=== PATIENT | female | born 1935 | race Caucasian/White ===

== ENCOUNTER 2024-10-31 15:26 | Inpatient (IN) | payer MEDICARE, OTHER ==
[~2024-10-31] VITALS: Ht 144.8 cm; Wt 53.0 kg
[2024-10-31] MEDS: diltiazem-NS 100mg/100ml 100 ML IV SCH (15:49)
[2024-10-31] MEDS ORDERED: LEVO25TA2 PO (17:36)
[2024-10-31] MEDS ORDERED: AZIT-21 PO (17:36)
[2024-10-31] MEDS ORDERED: MEGE400O45 PO (17:36)
[2024-10-31] MEDS ORDERED: SACU1TAB PO (17:36)
[2024-10-31] MEDS ORDERED: CARV-50 PO (17:36)
[2024-10-31] MEDS ORDERED: DONE-53 PO (17:36)
[2024-10-31] MEDS ORDERED: PRIM50TA27 PO (17:36)
[2024-10-31] MEDS ORDERED: EMPA10TA PO (17:36)
[2024-10-31] MEDS ORDERED: LOP12.5T PO (17:36)
[2024-10-31] MEDS ORDERED: MIRT-142 PO (17:36)
[2024-10-31] MEDS ORDERED: FURO-150 PO (17:36)
[2024-10-31] MEDS ORDERED: LISI20TA28 PO (17:36)
[2024-10-31] MEDS ORDERED: APIX5TAB5 PO (17:36)
[2024-10-31] MEDS ORDERED: SUMA25TA35 PO (17:36)
[2024-10-31] MEDS ORDERED: CLON-850 PO (17:36)
[2024-10-31 18:28] LABS: BASOPHILS # (AUTO) 0.1 X10'3 (0-0.2); EOSINOPHILS % (AUTO) 0.2 % (0-6); HEMATOCRIT 48.5 % (35.0-45.0); HEMOGLOBIN 16.3 g/dl (12.0-16.0); LYMPHOCYTES # (AUTO) 2.3 X10'3 (1.1-4.8); LYMPHOCYTES % (AUTO) 33.8 % (21-51); MEAN CORPUSCULAR HEMOGLOBIN 32.9 PG (27.0-31.0); MEAN CORPUSCULAR HGB CONC 33.6 g/dL (33.0-36.5); MEAN PLATELET VOLUME 9.5 FL (7.4-10.4); MONOCYTES % (AUTO) 14.5 % (2-12); NEUTROPHILS # (AUTO) 3.5 X10'3 (1.8-7.7); NEUTROPHILS % (AUTO) 50.5 % (42-75); PLATELET COUNT 183 X10'3 (140-440); RED BLOOD COUNT 4.95 X10'6 (4.20-5.60); RED CELL DISTRIBUTION WIDTH 14.8 % (11.5-14.5); WHITE BLOOD COUNT 6.9 X10'3 (4.5-11.0)
[2024-10-31 19:14] LABS: ALANINE AMINOTRANSFERASE 37 U/L (12-78); ALBUMIN 3.3 G/DL (3.4-5.0); ALKALINE PHOSPHATASE 78 IU/L (46-116); ANION GAP 12 (8-16); ASPARTATE AMINO TRANSFERASE 25 U/L (10-37); BILIRUBIN,TOTAL 1.2 MG/DL (0.1-1.0); BLOOD UREA NITROGEN 20 MG/DL (7-18); BUN/CREATININE RATIO 12.8 (10.0-20.0); CALCIUM 9.1 MG/DL (8.5-10.1); CHLORIDE 106 MMOL/L (99-107); CREATININE 1.56 MG/DL (0.40-0.90); GLUCOSE 91 MG/DL (70-104); POTASSIUM 3.5 MMOL/L (3.5-5.1); PRO BRAIN NATRIURETIC PEPTIDE 18764 PG/ML (0-450); SODIUM 144 MMOL/L (135-145); TOTAL CARBON DIOXIDE 25.6 MMOL/L (24-32); TOTAL PROTEIN 6.7 G/DL (6.4-8.2); eCRCL 19 ML/MIN; eGFR 31 ML/MIN
[2024-10-31] MEDS ORDERED: acetaminophen 325mg tablet PO PRN (20:35)
[2024-10-31] MEDS ORDERED: magnesium hydroxide 30ml (MOM) UD suspension PO PRN (20:35)
[2024-10-31] MEDS ORDERED: potassium Cl 40MEQ/1/2NS 520ml 520 ML IV PRN (20:35)
[2024-10-31] MEDS ORDERED: magnesium sulf-water 4G/100mL 100 ML IV PRN (20:35)
[2024-10-31] MEDS ORDERED: magnesium sulf-water 2g/50mL 50 ML IV PRN (20:35)
[2024-10-31] MEDS: furosemide 10 MG/1 ML 10ml inj IV ONE (21:11)
[2024-10-31] MEDS: amiodarone 150mg/dext, iso-os 100 ML IV ONE (21:14)
[2024-10-31] MEDS: potassium Cl 20 mEq SR tablet PO STA ×2 (21:38→22:50)
[2024-10-31] MEDS: apixaban 2.5mg tablet PO SCH (21:38)
[2024-10-31] MEDS: amiodarone/D5 360MG/200ML BAG 200 ML IV SCH (21:42)
[2024-11-01] VITALS (16 sets, daily range): BP systolic 107–140; BP diastolic 69–86; PULSE 101–132; RESP 12–27; TEMP 96.9–98.1; O2SAT 93–96
[2024-11-01] MEDS: magnesium sulf-water 4G/100mL 100 ML IV ONE (00:44)
[2024-11-01] MEDS ORDERED: SUMAtriptan 25 MG tablet PO PRN (04:55)
[2024-11-01 06:51] LABS: APTT 26 SECONDS (22-32); INR 1.2 INR; PROTHROMBIN TIME 12.8 SECONDS (9.0-12.0)
[2024-11-01 07:08] LABS: ALANINE AMINOTRANSFERASE 43 U/L (12-78); ALBUMIN 3.1 G/DL (3.4-5.0); ALBUMIN/GLOBULIN RATIO 0.9 (1.1-1.5); ALKALINE PHOSPHATASE 72 IU/L (46-116); ANION GAP 16 (8-16); BILIRUBIN,TOTAL 0.8 MG/DL (0.1-1.0); BLOOD UREA NITROGEN 21 MG/DL (7-18); BUN/CREATININE RATIO 14.7 (10.0-20.0); CALCIUM 8.5 MG/DL (8.5-10.1); CHLORIDE 102 MMOL/L (99-107); CHOL/HDL RATIO 3.1 (0.00-4.99); CHOLESTEROL 136 MG/DL (0-200); CREATININE 1.43 MG/DL (0.40-0.90); FREE T4 (FREE THYROXINE) 1.43 NG/DL (0.73-1.40); GLUCOSE 103 MG/DL (70-104); HDL CHOLESTEROL 44 MG/DL (35-60); LDL CHOLESTEROL 76 MG/DL (50-100); MAGNESIUM 1.7 MG/DL (1.5-2.4); SODIUM 138 MMOL/L (135-145); THYROID STIMULATING HORMONE 2.83 ulU/ml (0.34-4.50); TOTAL CARBON DIOXIDE 19.8 MMOL/L (24-32); TOTAL PROTEIN 6.6 G/DL (6.4-8.2); TRIGLYCERIDES 103 MG/DL (20-135); eCRCL 16 ML/MIN; eGFR 35 ML/MIN
[2024-11-01 07:15] LABS: ASPARTATE AMINO TRANSFERASE 41 U/L (10-37); PHOSPHORUS 2.9 MG/DL (2.3-4.5); POTASSIUM 3.8 MMOL/L (3.5-5.1)
[2024-11-01 07:17] LABS: LYMPHOCYTES # (AUTO) 2.3 X10'3 (1.1-4.8); MONOCYTES # (AUTO) 1.1 X10'3 (0-0.9); NEUTROPHILS % (AUTO) 53.8 % (42-75)
[2024-11-01 07:18] LABS: BASOPHILS % (AUTO) 0.4 % (0-1); EOSINOPHILS % (AUTO) 0.4 % (0-6); HEMATOCRIT 47.9 % (35.0-45.0); HEMOGLOBIN 15.9 g/dl (12.0-16.0); LYMPHOCYTES % (AUTO) 30.6 % (21-51); MEAN CORPUSCULAR HEMOGLOBIN 32.7 PG (27.0-31.0); MEAN CORPUSCULAR HGB CONC 33.1 g/dL (33.0-36.5); MEAN CORPUSCULAR VOLUME 98.9 FL (78-98); MEAN PLATELET VOLUME 9.9 FL (7.4-10.4); MONOCYTES % (AUTO) 14.8 % (2-12); PLATELET COUNT 174 X10'3 (140-440); RED BLOOD COUNT 4.85 X10'6 (4.20-5.60); RED CELL DISTRIBUTION WIDTH 15.3 % (11.5-14.5); WHITE BLOOD COUNT 7.5 X10'3 (4.5-11.0)
[2024-11-01] MEDS: K and/or MAG REPLACEMENT MC SCH (08:00)
[2024-11-01 08:16] LABS: HEMOGLOBIN A1C 5.5 % (4.5-6.2)
[2024-11-01] MEDS: azithromycin/NS 500mg/250ml 250 ML IV ONE (09:49)
[2024-11-01] MEDS: levoTHYROXINE 25mcg tablet PO SCH (09:51)
[2024-11-01] MEDS: docusate sod 100mg capsule PO SCH (09:52)
[2024-11-01] MEDS: furosemide 40mg/4ml inj IV SCH (09:52)
[2024-11-01] MEDS: CefTRIAXone 2gm/D5W 50ml BAG 50 ML IV SCH (12:03)
[2024-11-01] MEDS: metoprolol tartrate 1mg/ml inj IV SCH (16:57)
[2024-11-01] MEDS: digoxin 250mcg/ml 2ml ampule IV ONE (17:23)
[2024-11-01] MEDS: primidone 50mg tablet PO SCH (20:14)
[2024-11-01] MEDS: digoxin 250mcg/ml 2ml ampule IV STA (20:15)
[2024-11-01] MEDS ORDERED: mirtazapine 15mg tablet PO SCH (21:00)
[2024-11-01] MEDS ORDERED: donepezil 5mg tablet PO SCH (21:00)
[2024-11-01] MEDS: acetaminophen 325mg tablet PO PRN (23:05)
[2024-11-02 02:00] VITALS: BP 104/66; PULSE 93; RESP 20; TEMP 96.3; O2SAT 93
[2024-11-02 06:30] VITALS: BP 143/70; PULSE 118; RESP 22; TEMP 97.8; O2SAT 99
[2024-11-02 07:57] LABS: LYMPHOCYTES # (AUTO) 0.5 X10'3 (1.1-4.8)
[2024-11-02 07:59] LABS: BASOPHILS % (AUTO) 0.3 % (0-1); EOSINOPHILS % (AUTO) 0 % (0-6); HEMATOCRIT 47.4 % (35.0-45.0); HEMOGLOBIN 16.2 g/dl (12.0-16.0); LYMPHOCYTES % (AUTO) 4.3 % (21-51); MEAN CORPUSCULAR HEMOGLOBIN 32.8 PG (27.0-31.0); MEAN CORPUSCULAR HGB CONC 34.1 g/dL (33.0-36.5); MEAN CORPUSCULAR VOLUME 96.4 FL (78-98); MEAN PLATELET VOLUME 9.9 FL (7.4-10.4); MONOCYTES # (AUTO) 0.8 X10'3 (0-0.9); MONOCYTES % (AUTO) 6.7 % (2-12); NEUTROPHILS # (AUTO) 10.3 X10'3 (1.8-7.7); NEUTROPHILS % (AUTO) 88.7 % (42-75); PLATELET COUNT 155 X10'3 (140-440); RED BLOOD COUNT 4.92 X10'6 (4.20-5.60); RED CELL DISTRIBUTION WIDTH 14.3 % (11.5-14.5); WHITE BLOOD COUNT 11.6 X10'3 (4.5-11.0)
[2024-11-02 09:27] LABS: APTT 31 SECONDS (22-32); INR 1.4 INR
[2024-11-02 10:03] LABS: ALANINE AMINOTRANSFERASE 52 U/L (12-78); ALBUMIN/GLOBULIN RATIO 0.8 (1.1-1.5); ALKALINE PHOSPHATASE 76 IU/L (46-116); ANION GAP 11 (8-16); ASPARTATE AMINO TRANSFERASE 49 U/L (10-37); BILIRUBIN,TOTAL 0.7 MG/DL (0.1-1.0); BLOOD UREA NITROGEN 25 MG/DL (7-18); BUN/CREATININE RATIO 13.7 (10.0-20.0); CALCIUM 8.2 MG/DL (8.5-10.1); CHLORIDE 98 MMOL/L (99-107); CREATININE 1.83 MG/DL (0.40-0.90); DIGOXIN 1.2 NG/ML (0.9-1.9); GLUCOSE 113 MG/DL (70-104); MAGNESIUM 1.4 MG/DL (1.5-2.4); PHOSPHORUS 3.2 MG/DL (2.3-4.5); POTASSIUM 3.1 MMOL/L (3.5-5.1); SODIUM 136 MMOL/L (135-145); TOTAL CARBON DIOXIDE 26.9 MMOL/L (24-32); TOTAL PROTEIN 6.7 G/DL (6.4-8.2); eCRCL 13 ML/MIN; eGFR 26 ML/MIN
[2024-11-02] MEDS: digoxin 250mcg/ml 2ml ampule IV ONE ×2 (10:23→17:42)
[2024-11-02] MEDS: metoprolol tartrate 1mg/ml inj IV SCH ×2 (10:25→20:16)
[2024-11-02 11:00] VITALS: BP 104/54; PULSE 124; RESP 28; TEMP 97.9; O2SAT 95
[2024-11-02] MEDS: magnesium Cl slow-release 64mg tablet PO PRN (12:32)
[2024-11-02] MEDS: potassium Cl 20 mEq SR tablet PO PRN ×2 (12:37→20:13)
[2024-11-02] MEDS: ondansetron/PF 4mg/2ml inj IV PRN (14:11)
[2024-11-02 15:00] VITALS: BP 123/58; PULSE 100; RESP 19; TEMP 99.3; O2SAT 92
[2024-11-02] MEDS: azithromycin/NS 500mg/250ml 250 ML IV SCH (17:51)
[2024-11-02 18:00] VITALS: BP 101/58; PULSE 96; RESP 19; TEMP 97.9; O2SAT 92
[2024-11-02] MEDS: amiodarone 200mg tablet PO SCH (20:13)
[2024-11-02 22:00] VITALS: BP 111/59; PULSE 98; RESP 22; TEMP 97.4; O2SAT 98
[2024-11-03] MEDS: Melatonin 3mg tablet PO ONE ×2 (00:48→23:05)
[2024-11-03 02:00] VITALS: BP 113/53; PULSE 79; RESP 22; TEMP 97.8; O2SAT 98
[2024-11-03 06:00] VITALS: BP 114/55; PULSE 82; RESP 15; TEMP 97.7; O2SAT 97
[2024-11-03 06:58] LABS: BASOPHILS % (AUTO) 0.2 % (0-1); EOSINOPHILS % (AUTO) 0 % (0-6); HEMATOCRIT 47.7 % (35.0-45.0); HEMOGLOBIN 15.8 g/dl (12.0-16.0); LYMPHOCYTES % (AUTO) 7.2 % (21-51); MEAN CORPUSCULAR HEMOGLOBIN 32.1 PG (27.0-31.0); MEAN CORPUSCULAR HGB CONC 33.2 g/dL (33.0-36.5); MEAN CORPUSCULAR VOLUME 96.7 FL (78-98); MEAN PLATELET VOLUME 10.1 FL (7.4-10.4); MONOCYTES # (AUTO) 0.9 X10'3 (0-0.9); MONOCYTES % (AUTO) 6.5 % (2-12); NEUTROPHILS # (AUTO) 11.9 X10'3 (1.8-7.7); NEUTROPHILS % (AUTO) 86.1 % (42-75); PLATELET COUNT 141 X10'3 (140-440); RED BLOOD COUNT 4.93 X10'6 (4.20-5.60); RED CELL DISTRIBUTION WIDTH 14.6 % (11.5-14.5); WHITE BLOOD COUNT 13.8 X10'3 (4.5-11.0)
[2024-11-03 07:31] LABS: APTT 31 SECONDS (22-32); INR 1.2 INR; PROTHROMBIN TIME 12.7 SECONDS (9.0-12.0)
[2024-11-03 07:47] LABS: ALANINE AMINOTRANSFERASE 47 U/L (12-78); ALBUMIN 2.7 G/DL (3.4-5.0); ALBUMIN/GLOBULIN RATIO 0.8 (1.1-1.5); ALKALINE PHOSPHATASE 64 IU/L (46-116); ANION GAP 15 (8-16); ASPARTATE AMINO TRANSFERASE 38 U/L (10-37); BILIRUBIN,TOTAL 0.5 MG/DL (0.1-1.0); BLOOD UREA NITROGEN 37 MG/DL (7-18); BUN/CREATININE RATIO 19.2 (10.0-20.0); CALCIUM 8.1 MG/DL (8.5-10.1); CHLORIDE 99 MMOL/L (99-107); CREATININE 1.93 MG/DL (0.40-0.90); GLUCOSE 92 MG/DL (70-104); MAGNESIUM 1.6 MG/DL (1.5-2.4); PHOSPHORUS 4.2 MG/DL (2.3-4.5); SODIUM 136 MMOL/L (135-145); TOTAL CARBON DIOXIDE 22.4 MMOL/L (24-32); eCRCL 12 ML/MIN; eGFR 24 ML/MIN
[2024-11-03 07:51] LABS: POTASSIUM 3.8 MMOL/L (3.5-5.1)
[2024-11-03] MEDS ORDERED: furosemide 40mg/4ml inj IV SCH (08:00)
[2024-11-03 08:30] LABS: DIGOXIN 5.8 NG/ML (0.9-1.9)
[2024-11-03 11:00] VITALS: BP 127/53; PULSE 76; RESP 20; TEMP 97.8; O2SAT 95
[2024-11-03] MEDS: loperamide 2mg capsule PO ONE (13:28)
[2024-11-03 15:00] VITALS: BP 138/56; PULSE 80; RESP 28; TEMP 97.9; O2SAT 97
[2024-11-03] MEDS: metoprolol tartrate 50mg tablet PO SCH (15:09)
[2024-11-03 18:00] VITALS: BP 126/54; PULSE 69; RESP 23; TEMP 98.1; O2SAT 97
[2024-11-03] MEDS: PERFLUTREN PROTEIN-A MICROSPHR (Optison) 0.22 MG/ML 3ML VIAL IV ONE (20:05)
[2024-11-03] MEDS: normal saline 1000ml 1,000 ML IV SCH (21:07)
[2024-11-03 22:00] VITALS: BP 137/71; PULSE 70; RESP 28; TEMP 96.8; O2SAT 93
[2024-11-04 02:00] VITALS: BP 136/59; PULSE 73; RESP 19; TEMP 97.1; O2SAT 92
[2024-11-04 06:00] VITALS: BP 118/76; PULSE 83; RESP 20; TEMP 97.6; O2SAT 94
[2024-11-04 07:20] LABS: BASOPHILS % (AUTO) 0.3 % (0-1); EOSINOPHILS % (AUTO) 0.1 % (0-6); HEMATOCRIT 44.2 % (35.0-45.0); INR 1.2 INR; LYMPHOCYTES # (AUTO) 0.9 X10'3 (1.1-4.8); LYMPHOCYTES % (AUTO) 8.1 % (21-51); MEAN CORPUSCULAR HEMOGLOBIN 32.6 PG (27.0-31.0); MEAN CORPUSCULAR VOLUME 95.9 FL (78-98); MEAN PLATELET VOLUME 10.4 FL (7.4-10.4); MONOCYTES # (AUTO) 1.2 X10'3 (0-0.9); MONOCYTES % (AUTO) 10.1 % (2-12); NEUTROPHILS # (AUTO) 9.5 X10'3 (1.8-7.7); NEUTROPHILS % (AUTO) 81.4 % (42-75); PLATELET COUNT 154 X10'3 (140-440); PROTHROMBIN TIME 12.1 SECONDS (9.0-12.0); RED BLOOD COUNT 4.61 X10'6 (4.20-5.60); RED CELL DISTRIBUTION WIDTH 14.2 % (11.5-14.5); WHITE BLOOD COUNT 11.7 X10'3 (4.5-11.0)
[2024-11-04 07:25] LABS: ALANINE AMINOTRANSFERASE 34 U/L (12-78); ALBUMIN 2.7 G/DL (3.4-5.0); ALBUMIN/GLOBULIN RATIO 0.8 (1.1-1.5); ALKALINE PHOSPHATASE 60 IU/L (46-116); ANION GAP 10 (8-16); ASPARTATE AMINO TRANSFERASE 22 U/L (10-37); BILIRUBIN,TOTAL 0.4 MG/DL (0.1-1.0); BLOOD UREA NITROGEN 42 MG/DL (7-18); BUN/CREATININE RATIO 19.4 (10.0-20.0); CHLORIDE 99 MMOL/L (99-107); CREATININE 2.16 MG/DL (0.40-0.90); GLUCOSE 94 MG/DL (70-104); MAGNESIUM 1.5 MG/DL (1.5-2.4); PHOSPHORUS 3.1 MG/DL (2.3-4.5); POTASSIUM 3.5 MMOL/L (3.5-5.1); SODIUM 134 MMOL/L (135-145); TOTAL CARBON DIOXIDE 25.3 MMOL/L (24-32); TOTAL PROTEIN 6.1 G/DL (6.4-8.2); eCRCL 11 ML/MIN; eGFR 21 ML/MIN
[2024-11-04] MEDS ORDERED: DOBUTamine-DoBUTrex 500mg/D5W 250 ML IV SCH (07:55)
[2024-11-04] MEDS: levoTHYROXINE 75mcg tablet PO SCH (08:52)
[2024-11-04 09:29] LABS: PRO BRAIN NATRIURETIC PEPTIDE 16871 PG/ML (0-450)
[2024-11-04 11:00] VITALS: BP 140/66; PULSE 61; RESP 25; TEMP 98.3; O2SAT 92
[2024-11-04 15:00] VITALS: BP 145/72; PULSE 80; RESP 32; TEMP 98.6; O2SAT 92
[2024-11-04 18:00] VITALS: BP 117/58; PULSE 75; RESP 18; TEMP 98.2; O2SAT 90
[2024-11-04] MEDS: carVEDilol 12.5mg tablet PO SCH (20:18)
[2024-11-04 22:00] VITALS: BP 96/54; PULSE 54; RESP 12; TEMP 97.9; O2SAT 92
[2024-11-05] VITALS (7 sets, daily range): BP systolic 124–147; BP diastolic 54–70; PULSE 67–78; RESP 16–22; TEMP 97.3–100; O2SAT 94–98
[2024-11-05 07:28] LABS: BASOPHILS % (AUTO) 0.4 % (0-1); EOSINOPHILS % (AUTO) 0.4 % (0-6); HEMATOCRIT 45.2 % (35.0-45.0); HEMOGLOBIN 15.4 g/dl (12.0-16.0); LYMPHOCYTES # (AUTO) 0.8 X10'3 (1.1-4.8); LYMPHOCYTES % (AUTO) 9.4 % (21-51); MEAN CORPUSCULAR HEMOGLOBIN 32.3 PG (27.0-31.0); MEAN CORPUSCULAR HGB CONC 34.1 g/dL (33.0-36.5); MEAN CORPUSCULAR VOLUME 94.9 FL (78-98); MEAN PLATELET VOLUME 9.8 FL (7.4-10.4); MONOCYTES # (AUTO) 0.7 X10'3 (0-0.9); MONOCYTES % (AUTO) 8.1 % (2-12); NEUTROPHILS # (AUTO) 7.1 X10'3 (1.8-7.7); NEUTROPHILS % (AUTO) 81.7 % (42-75); PLATELET COUNT 137 X10'3 (140-440); RED BLOOD COUNT 4.76 X10'6 (4.20-5.60); RED CELL DISTRIBUTION WIDTH 14.6 % (11.5-14.5); WHITE BLOOD COUNT 8.7 X10'3 (4.5-11.0)
[2024-11-05 07:41] LABS: INR 1.2 INR
[2024-11-05 08:02] LABS: ALANINE AMINOTRANSFERASE 31 U/L (12-78); ALBUMIN 2.7 G/DL (3.4-5.0); ALBUMIN/GLOBULIN RATIO 0.8 (1.1-1.5); ALKALINE PHOSPHATASE 66 IU/L (46-116); ANION GAP 9 (8-16); ASPARTATE AMINO TRANSFERASE 27 U/L (10-37); BILIRUBIN,TOTAL 0.5 MG/DL (0.1-1.0); BLOOD UREA NITROGEN 43 MG/DL (7-18); BUN/CREATININE RATIO 20.9 (10.0-20.0); CALCIUM 8.3 MG/DL (8.5-10.1); CHLORIDE 103 MMOL/L (99-107); CREATININE 2.06 MG/DL (0.40-0.90); GLUCOSE 94 MG/DL (70-104); MAGNESIUM 1.8 MG/DL (1.5-2.4); PHOSPHORUS 3.3 MG/DL (2.3-4.5); POTASSIUM 3.5 MMOL/L (3.5-5.1); SODIUM 138 MMOL/L (135-145); TOTAL CARBON DIOXIDE 25.7 MMOL/L (24-32); TOTAL PROTEIN 6.3 G/DL (6.4-8.2); eCRCL 11 ML/MIN; eGFR 23 ML/MIN
[2024-11-05] MEDS: lactose-reduced food (Ensure Enlive) - 237ml bottle PO SCH (18:00)
[2024-11-06] VITALS (16 sets, daily range): BP systolic 126–189; BP diastolic 58–85; PULSE 56–95; RESP 16–30; TEMP 97.1–98.1; O2SAT 94–97
[2024-11-06 03:16] LABS: BILIRUBIN,URINE NEGATIVE (Neg); CLARITY,URINE CLEAR (Clear); COLOR,URINE YELLOW (Yellow); GLUCOSE, URINE NEGATIVE (Neg); KETONES,URINE NEGATIVE (Neg); LEUKOCYTE ESTERASE ,URINE NEGATIVE (Neg); OCCULT BLOOD,URINE MODERATE (Neg); PH,URINE 5.5 (4.8-8.0); PROTEIN,URINE 30 mg/dl (Neg); UROBILINOGEN,URINE 0.2 E.U/dL (0.2-1.0)
[2024-11-06 03:25] LABS: UA COLLECTION TYPE NON-SPECIFIED
[2024-11-06 03:26] LABS: NITRITES, URINE NEGATIVE (Neg)
[2024-11-06 03:29] LABS: AMORPHOUS URATES 2+; BACTERIA,URINE 1+ /HPF (Neg); SQUAMOUS EPITHELIAL CELL,UR FEW /LPF (FEW); WBC,URINE NONE SEEN /HPF (0-4)
[2024-11-06 03:31] LABS: URINE AMPHETAMINE SCREEN NEGATIVE (Neg); URINE BARBITUATE SCREEN POSITIVE (Neg); URINE BENZODIAZEPINES SCREEN NEGATIVE (Neg); URINE CANNABINOID SCREEN NEGATIVE (Neg); URINE COCAINE SCREEN NEGATIVE (Neg); URINE METHADONE SCREEN NEGATIVE (Neg); URINE OPIATE SCREEN NEGATIVE (Neg); URINE PHENCYCLIDINE SCREEN NEGATIVE (Neg)
[2024-11-06 03:32] LABS: SODIUM,URINE RANDOM < 15 MEQ/L
[2024-11-06 03:44] LABS: OSMOLALITY UA 604 MOSM/K (50-1400)
[2024-11-06] MEDS: mag hydrox/Alum hydrox/simeth 30ml oral suspension PO PRN (06:26)
[2024-11-06] MEDS: carVEDilol 12.5mg tablet PO ONE ×2 (08:20→20:07)
[2024-11-06 09:10] LABS: BASOPHILS % (AUTO) 0.3 % (0-1); EOSINOPHILS % (AUTO) 0.1 % (0-6); HEMATOCRIT 43.7 % (35.0-45.0); HEMOGLOBIN 14.8 g/dl (12.0-16.0); LYMPHOCYTES # (AUTO) 1.3 X10'3 (1.1-4.8); LYMPHOCYTES % (AUTO) 17.5 % (21-51); MEAN CORPUSCULAR HEMOGLOBIN 32.3 PG (27.0-31.0); MEAN CORPUSCULAR HGB CONC 33.9 g/dL (33.0-36.5); MEAN CORPUSCULAR VOLUME 95.4 FL (78-98); MEAN PLATELET VOLUME 10.1 FL (7.4-10.4); MONOCYTES % (AUTO) 13.9 % (2-12); NEUTROPHILS # (AUTO) 4.9 X10'3 (1.8-7.7); NEUTROPHILS % (AUTO) 68.2 % (42-75); PLATELET COUNT 140 X10'3 (140-440); RED BLOOD COUNT 4.58 X10'6 (4.20-5.60); RED CELL DISTRIBUTION WIDTH 14.1 % (11.5-14.5); WHITE BLOOD COUNT 7.2 X10'3 (4.5-11.0)
[2024-11-06 09:30] LABS: ALANINE AMINOTRANSFERASE 24 U/L (12-78); ALBUMIN 2.5 G/DL (3.4-5.0); ALBUMIN/GLOBULIN RATIO 0.7 (1.1-1.5); ALKALINE PHOSPHATASE 53 IU/L (46-116); ANION GAP 8 (8-16); ASPARTATE AMINO TRANSFERASE 27 U/L (10-37); BILIRUBIN,TOTAL 0.4 MG/DL (0.1-1.0); BLOOD UREA NITROGEN 39 MG/DL (7-18); BUN/CREATININE RATIO 24.4 (10.0-20.0); CALCIUM 8.2 MG/DL (8.5-10.1); CHLORIDE 107 MMOL/L (99-107); GLUCOSE 110 MG/DL (70-104); POTASSIUM 3.4 MMOL/L (3.5-5.1); SODIUM 139 MMOL/L (135-145); TOTAL CARBON DIOXIDE 24.1 MMOL/L (24-32); eCRCL 15 ML/MIN; eGFR 30 ML/MIN
[2024-11-06] MEDS ORDERED: nitroGLYCERIN 0.4mg SUBLingual tab SL PRN (10:55)
[2024-11-06] MEDS ORDERED: potassium Cl 40MEQ/1/2NS 520ml 520 ML IV PRN (12:20)
[2024-11-06] MEDS ORDERED: potassium Cl 20 mEq SR tablet PO PRN (12:20)
[2024-11-06] MEDS ORDERED: magnesium sulf-water 2g/50mL 50 ML IV PRN (12:20)
[2024-11-06] MEDS ORDERED: magnesium sulf-water 4G/100mL 100 ML IV PRN (12:20)
[2024-11-06] MEDS: regadenoson 0.4mg/5ml syringe IV PRN (14:03)
[2024-11-06] MEDS: aminophylline 250mg/10ml inj. IV PRN (14:30)
[2024-11-06] MEDS: potassium Cl 20 mEq SR tablet PO PRN (15:18)
[2024-11-06] MEDS: ondansetron 4mg rapidly disintigrating tab PO PRN (15:27)
[2024-11-06] MEDS: metoprolol tartrate 1mg/ml inj IV PRN (16:00)
[2024-11-06] MEDS: hydrALAZINE 20mg/ml inj. IV STA (19:04)
[2024-11-06] MEDS ORDERED: hydrALAZINE 20mg/ml inj. IV PRN (19:10)
[2024-11-06] MEDS: K and/or MAG REPLACEMENT MC SCH (20:00)
[2024-11-06] MEDS: docusate sodium 100mg/10ml UD cup PO SCH (21:14)
[2024-11-07 02:00] VITALS: BP 148/72; PULSE 70; RESP 18; TEMP 97.9; O2SAT 96
[2024-11-07 06:00] VITALS: BP 135/60; PULSE 61; RESP 14; TEMP 97.3; O2SAT 97
[2024-11-07 06:34] LABS: HEMOGLOBIN 13.9 g/dl (12.0-16.0); MEAN CORPUSCULAR HGB CONC 34.1 g/dL (33.0-36.5); NEUTROPHILS # (AUTO) 4.2 X10'3 (1.8-7.7); WHITE BLOOD COUNT 6.7 X10'3 (4.5-11.0)
[2024-11-07 06:37] LABS: BASOPHILS % (AUTO) 0.3 % (0-1); EOSINOPHILS % (AUTO) 0.3 % (0-6); HEMATOCRIT 40.7 % (35.0-45.0); LYMPHOCYTES # (AUTO) 1.5 X10'3 (1.1-4.8); LYMPHOCYTES % (AUTO) 21.8 % (21-51); MEAN CORPUSCULAR HEMOGLOBIN 32.5 PG (27.0-31.0); MEAN CORPUSCULAR VOLUME 95.1 FL (78-98); MEAN PLATELET VOLUME 9.6 FL (7.4-10.4); MONOCYTES % (AUTO) 15.5 % (2-12); NEUTROPHILS % (AUTO) 62.1 % (42-75); PLATELET COUNT 138 X10'3 (140-440); RED BLOOD COUNT 4.27 X10'6 (4.20-5.60); RED CELL DISTRIBUTION WIDTH 14.2 % (11.5-14.5)
[2024-11-07 07:10] LABS: ALANINE AMINOTRANSFERASE 32 U/L (12-78); ALBUMIN 2.2 G/DL (3.4-5.0); ALBUMIN/GLOBULIN RATIO 0.7 (1.1-1.5); ALKALINE PHOSPHATASE 51 IU/L (46-116); ANION GAP 10 (8-16); ASPARTATE AMINO TRANSFERASE 31 U/L (10-37); BILIRUBIN,TOTAL 0.4 MG/DL (0.1-1.0); BLOOD UREA NITROGEN 35 MG/DL (7-18); BUN/CREATININE RATIO 27.8 (10.0-20.0); CALCIUM 8.2 MG/DL (8.5-10.1); CHLORIDE 108 MMOL/L (99-107); CREATININE 1.26 MG/DL (0.40-0.90); GLUCOSE 116 MG/DL (70-104); POTASSIUM 3.5 MMOL/L (3.5-5.1); SODIUM 144 MMOL/L (135-145); TOTAL CARBON DIOXIDE 26.5 MMOL/L (24-32); TOTAL PROTEIN 5.5 G/DL (6.4-8.2); eCRCL 18 ML/MIN; eGFR 40 ML/MIN
[2024-11-07 08:00] VITALS: RESP 14; O2SAT 97
[2024-11-07 08:28] LABS: LARGE PLATELETS FEW; PLATELET ESTIMATE NORMAL; TOTAL CELLS COUNTED 100
[2024-11-07] MEDS: azithromycin 250mg tablet PO SCH (08:37)
[2024-11-07] MEDS: carVEDilol 12.5mg tablet PO SCH (08:38)
[2024-11-07 15:00] VITALS: BP 132/65; PULSE 62; RESP 19; TEMP 96.8; O2SAT 97
[2024-11-07] MEDS ORDERED: APIX2.5T PO (15:47)
== END 2024-11-07 17:49 | DRG 871 ==
LOC: ER 15:27 → ED HOLD 20:37 → EDBEDREQ 11-01 01:12 → PCU 3S 11-01 01:34
PROVIDERS: ADMIT Internal Medicine Critical Care Medicine; ATTEND Nurse Practitioner Family
PROC: CB121ZZ Planar Nuclear Medicine Imaging of Lungs and Bronchi using Technetium 99m (Tc-99m) (ICD-10-PCS; principal; 2024-11-02)
PROC: 05HD33Z Insertion of Infusion Device into Right Cephalic Vein, Percutaneous Approach (ICD-10-PCS; 2024-11-04)
PROC: B54MZZA Ultrasonography of Right Upper Extremity Veins, Guidance (ICD-10-PCS; 2024-11-04)
PROC: 4A02XM4 Measurement of Cardiac Total Activity, External Approach (ICD-10-PCS; 2024-11-06)
PROC: 3E033HZ Introduction of Radioactive Substance into Peripheral Vein, Percutaneous Approach (ICD-10-PCS; 2024-11-06)
DX: A41.9 Sepsis, unspecified organism (principal); I21.A1 Myocardial infarction type 2; J18.9 Pneumonia, unspecified organism; I50.23 Acute on chronic systolic (congestive) heart failure; N17.9 Acute kidney failure, unspecified; I16.1 Hypertensive emergency; F03.93 Unspecified dementia, unspecified severity, with mood disturbance; E03.9 Hypothyroidism, unspecified; I48.91 Unspecified atrial fibrillation; Z20.822 Contact with and (suspected) exposure to COVID-19; N18.30 Chronic kidney disease, stage 3 unspecified; G25.0 Essential tremor; G43.909 Migraine, unspecified, not intractable, without status migrainosus; Z79.899 Other long term (current) drug therapy; Z88.8 Allergy status to other drugs, medicaments and biological substances
CPT/HCPCS: 36410; 36415; 71045; 76770; 76937; 78452; 78582; 80053; 80061; 80162; 80305; 81001; 83036; 83735; 83880; 83935; 84100; 84133; 84300; 84439; 84443; 84484; 85007; 85025; 85610; 85730; 87040; 87081; 87502; 87503; 87811; 92508; 92616; 93005; 93017; 93306; 93308; 96365; 97110; 97116; 97161; 97530; 97535; 99291; A4615; A6250; A6258; A9500; A9539; A9540; C1751; G0378; J0280; J0282; J0456; J0696; J1160; J1940; J2405; J2785; J3475; J3490; J7030; J7040